=== PATIENT | male | born 1935 | race Caucasian/White ===

== ENCOUNTER → 2017-05-16 | Outpatient (CLI) | payer OTHER, MEDICARE ==
[~2017-05-16] MED LIST: AMBIEN10 MG PO; AVODART0.5 MG PO; Advil PM PO; CYMBALTA60 MG PO; Colace PO; FLUVOXAMINE MA100 MG PO; Flomax PO; KLONOPIN0.5 M1 PO; KlonoPIN PO; LEVAQUIN250 MG PO; Milk Of Magnesia,MOM PO; OLANZAPINE5 MG PO; OSTEO BI-FLEX1 EAC1 PO; PRESERVISION T1 EACH PO; PROSTATE HEALT1 EAC1 PO; RAPAFLO8 MG PO; RITALIN10 MG PO; TYLENOL EXTRA500 MG PO; Viibryd PO; Vitamin D PO; Zestril,Prinivil PO
== END | disposition home or self-care (01) ==
LOC: NUC 08:56
DX: R94.02 Abnormal brain scan (principal)
CPT/HCPCS: 78607; A9584